=== PATIENT | female | born 1970 | race Caucasian/White ===

== ENCOUNTER → 2018-09-06 15:56 | Outpatient (CLI) | payer OTHER, SELFPAY ==
[2016-02-17 07:34] VITALS: BMI 33.3
[2018-09-11 19:54] LABS: HPV APTIMA, High Risk Negative (Negative)
== END ==
PROVIDERS: Visit Provider Obstetrics & Gynecology
DX: Z12.4 Encounter for screening for malignant neoplasm of cervix (principal)
CPT/HCPCS: 87624; 88175; G0145

== ENCOUNTER → 2020-10-25 12:42 | Outpatient (CLI) | payer SELFPAY, OTHER ==
--- NOTE | 2020-10-25 12:46 | CT_ITS ---
STUDY: CT SCAN LOWER EXTREMITY KNEE RIGHT REASON FOR EXAM: Female, [address] [facility] RIGHT KNEE RADIATION DOSAGE (If Supplied By Facility): CTDIvol = ( 19.23 ) mGy, DLP = ( 1073.76 ) mGycm. Individualized dose optimization techniques were used for this CT.? TECHNIQUE: Multiple axial tomographic images of the right hip joint, right knee joint and right ankle joint were obtained. Coronal and sagittal reconstruction was obtained as well. COMPARISON: None. FINDINGS: Imaging of the right hip joint was performed. No significant joint space narrowing is seen. Marked degree of joint space narrowing involving the medial compartment of the knee joint with degenerative spurring. Multiple subchondral cysts are seen. The largest cyst is seen in the subchondral region of the medial femoral condyle. This measures 3 cm x 2.8 cm. There is also evidence of a small joint effusion. Imaging of the ankle joint was obtained. There is evidence of a degenerative spur formation along the posterior aspect of the talus. CT/Extremity Lower without Contra IMPRESSION: Marked degree of joint space narrowing involving the medial compartment of the knee joint with multiple subchondral cysts more prominent in the medial femoral condyle. Small joint effusion. Electronically Signed: Raj Prince, at 15:29 EST , Service support ,
== END ==
PROVIDERS: Referring Provider Orthopaedic Surgery; Visit Provider Orthopaedic Surgery
DX: M21.061 Valgus deformity, not elsewhere classified, right knee (principal); M21.161 Varus deformity, not elsewhere classified, right knee
CPT/HCPCS: 73700

== ENCOUNTER 2020-11-19 17:03 | Observation (INO) | payer SELFPAY, OTHER ==
--- NOTE | 2020-11-10 08:49 | RAD_ITS ---
STUDY: X-RAY CHEST REASON FOR EXAM: Female, 50 years old. PRE-OP. PT ST NO CHEST COMPLAINTS TODAY TECHNIQUE: PA and lateral views of the chest. COMPARISON: None. FINDINGS: The lungs are clear and expanded. There is no demonstrated pleural abnormality. Normal size heart. Normal mediastinum and chuck. Normal visualized pulmonary arteries. Normal visualized aortic arch and descending thoracic aorta. Normal visualized thoracic spine. Normal visualized ribs, clavicles, and shoulders. There is no demonstrated abnormality of the visualized soft tissue structures of the upper abdomen. RAD/Chest PA and Lateral IMPRESSION: Normal x-ray examination of the chest. Electronically Signed: Raj Prince MD at 10:27 EST , Service support ,
[2020-11-10 09:29] LABS: Hematocrit 37.8 % (37-47); Hemoglobin 12.6 g/dL (12.0-15.0); Mean Corp Hgb Conc 33.3 g/dL (32-36); Mean Corpuscular Hgb 29.9 pg (27.0-32.0); Mean Corpuscular Volume 89.8 fL (81-99); Mean Platelet Vol. 9.6 fl (6.2-12.0); Platelet Count 310 K/mm3 (150-450); RBC Distribution Width CV 13.6 % (11.6-14.6); RBC Distribution Width SD 44.2 fl (35.1-43.9); Red Blood Count 4.21 M/mm3 (4.2-5.4)
[2020-11-10 09:53] LABS: Magnesium 1.8 mg/dL (1.6-2.6)
[2020-11-10 10:02] LABS: Anion Gap 5 (5-15); BUN 14 mg/dL (7-18); BUN/Creat Ratio 23.5 RATIO (10-20); Calcium,Total 8.8 mg/dL (8.5-10.1); Chloride 106 mmol/L (98-107); EST Glomerular Filtration Rate 114 mL/min (>60); Est Glom Filt Rate - Afr Amer 137 mL/min (>60); Glucose 88 mg/dL (74-106); Potassium 3.8 mmol/L (3.5-5.1); Sodium Level 138 mmol/L (136-145)
[2020-11-19] VITALS (16 sets, daily range): BP systolic 80–116; BP diastolic 41–75; PULSE 58–86; RESP 16–18; TEMP 36.2–36.9; O2SAT 92–100; BMI 36.6
--- NOTE | 2020-11-19 | KNEE_PTH ---
PATIENT: ROSEMARIE JI LOC: MS3 U#:[id number] AGE/SX: 50/F ROOM: [facility] [place] RE11/19/[address]: Dr. Jesús Sam MD : 1970 BED: 1 DIS: 11/20/2020 SPEC #: [id number] RECD: 11/19/20 14:48 STATUS: LARON REVlad #: [id number] JANES: 11/19/20 00:[address]: Jesús Sam DEPT: SURGICAL PATHOLOGY RECD BY: Cullen Nassar ENTERED: 11/22/20 10:50 SP TYPE: TOTAL KNEE OTHR DR: Merry Davila, RETIREMENT PLAN COUNSELOR-C NITA Chau Tissues: A - Knee, NOS B - Femoral region, NOS Procedures: Decalcification bone/plaque Surgery Specimen Level IV HEADER OPERATION: ERAS, total knee replacement robotic arm assist PRE-OP DIAGNOSIS: Right knee severe rheumatoid arthritis TISSUE SUBMITTED: A - Right knee bone and tissue, B - Right femoral medial condyle cyst MICROSCOPIC DIAGNOSIS A. Bone and soft tissue of right knee, total knee replacement: Severe degenerative joint disease. Synovial hyperplasia with associated chronic inflammation. Trilineage hematopoiesis. B. Right femoral medial condyle cyst, excision: Fibrous tissue with associated chronic inflammation with focal degenerative change. Minute fragments of bone with no pathologic change. See comment. AM:fabby 11/25/2020 COMMENT B. The lesion may represent a cyst. Clinical correlation is suggested. MICROSCOPIC DESCRIPTION Slides are reviewed. GROSS DESCRIPTION A - Received is one container designated right knee bone and tissue. The specimen consists of multiple fragments of arreguin-yellow bone measuring in aggregate 14 x 11 x 2 cm. Also in the specimen container are multiple fragments of yellow-white soft tissue measuring in aggregate 2 x 2 x 0.8 cm. A number of bony fragments contain articular surfaces consistent with tibial plateau and femoral condyle and displaying prominent osteophyte formation, eburnation, and bone erosion. Foot Setter sections are submitted in two cassettes as follows: 1 - soft tissue, 2 - bone after decalcification. B - Received in fixative is one container labeled with the patient's name and designated right femoral condyle cyst. The specimen consists of an irregular fragment of arreguin-white soft tissue measuring 3 x 2.2 x 1.5 cm. The specimen is sectioned and totally submitted in one cassette. / JUVE:fabby 11/22/20 TC:3 CPT: 65327 x2, [id number]
[2020-11-19 07:45] LABS: Internal QC Validated? YES +Cl - CLEAR BKGD
[2020-11-19 07:46] LABS: Pregnancy, Urine Negative Negative
[2020-11-19] MEDS: Lactated Ringers 1,000 ML 100 ML IV ×3 (08:08→17:01)
[2020-11-19] MEDS: Gabapentin 600 MG Tablet PO (08:09)
[2020-11-19] MEDS: Acetaminophen 500 MG Tablet 1000 MG PO ×2 (08:09→22:12)
[2020-11-19] MEDS: Scopolamine 1mg/72hr Patch 1 PATCH TD (08:09)
[2020-11-19] MEDS: Celecoxib 200 MG Capsule 400 MG PO (08:09)
[2020-11-19] MEDS: Cefazolin 2 GM in 0.9% Normal Saline 100 ML IV (10:04)
[2020-11-19 11:06] LABS: Bedside Glucose 82 mg/dL (70-110)
--- NOTE | 2020-11-19 13:47 | PCM.OP.PRO ---
Procedure Report Date of Procedure: 11/19/20 Preoperative diagnosis: Right knee severe rheumatoid arthritis large cysts of the femur and tibia Postoperative diagnosis: Same Title of procedure : Right total knee replacement, cemented Balaji triathlon YAKOV Surgeon: Jesús Sam MD Alteration Workroom Supervisor: Gertrudis Cook PA-C Anesthesia: spinal adductor canal nerve block Anesthesiologist:Dr. astudillo / CALVIN Special medications: Ancef, tranexamic acid EBL 600 Complications: None Indications for surgery: Patient is a [50-year-old [female] with a history of knee rheumatoid arthritis appropriately treated and failed conservative measures and wished to proceed with total knee replacement. Patient was cleared for surgery by the medical doctor and has been evaluated by the anesthesia staff Findings: Intraoperative findings showed severe rheumatoid arthritis of the knee. Patient underwent knee replacement using Balaji triathlon cemented stemmed total knee components Yakov robotic assisted. Size [3] femur 12 x 50 mm stem with a 10 mm posterior medial augment, size [3] tibia a 12 x 50 stem, [29 x 9] asymmetric X3 patella, size [3-9 PS] X3 tibial polyethylene insert, knee was nicely balanced. Patella tracked well. Patient underwent standard wound closure in layers. Vicryl and strata fix sutures utilized followed by skin isai. guest services assistant, physician pastry assistant, was utilized throughout the entire procedure. They were vital in helping with patient positioning, holding of retractors, exposing the tissues adequately for safe completion of the procedure including cutting of the bone, helping vegetable loader appropriate alignment and sizing of the components, implantation of the components, as well as wound closure, bandage application, and safe patient transfer. Without surgical technologist, physician pastry assistant, surgical time would have been significantly increased, and surgical outcome could have been less optimal. Description of procedure: The patient was taken to the OR, transferred to the OR table. They were given a spinal anesthetic. Ancef was given IV preoperatively. Well-padded tourniquet was applied to the upper thigh of the operative leg. Nonoperative leg had a MAG hose and SCD on throughout. Operative limb was prepped padded and draped in usual orthopedic sterile fashion for the procedure. We began by injecting the pain relieving solution in the anterior superior aspect of the knee region. The limb was exsanguinated, and the tourniquet was applied to 300 mmHg. Made a midline incision through skin, subcutaneous tissue, bringing down us on the extensor mechanism. Medial parapatellar arthrotomy was carried out. Straw-colored joint fluid was evacuated. We raised a sleeve of tissue off the upper medial tibia. Resected some of the infrapatellar fat pad. We remove degenerative medial and lateral meniscus. Removed bone spurs from about the patella. We removed tissue off the anterior aspect of the distal femur. Patella was translated laterally and/or everted as needed throughout the procedure. ACL and PCL was removed. Collateral ligaments were preserved. Physician placed the retractors and pastry assistant held retractors protecting above ligaments throughout the procedure. Patella was everted. Measured. Appropriate resection was carried out leaving us between a 13 and 15 mm thick patella. Metal plate was applied. Pins were placed in the femur and tibia at appropriate locations being bicortical. Check pin was placed in the distal femur and upper tibia at appropriate location. [employer] robot was appropriately prepared femur then tibia. Knee was appropriately stressed in 90 degrees of flexion as well as in extension. Robot was appropriately manipulated to allow for approximately 19 to 21 mm of flexion and extension gap. Good sizing and alignment of components was noted on computer. Robotic cuts were carried out cutting the upper tibia first, followed by femoral cuts. Alteration Workroom Supervisor help with retraction and protecting soft tissues throughout. Bone fragments were removed. we then sized off the upper tibia with the help of the pastry assistant. We then checked flexion extension gaps finding them to be adequate and equal. Large cyst in the upper tibia, distal femur medially, posterior femur medially noted as per preoperative CT. The cysts were curetted. Consistent with rheumatoid arthritis. Box cut for the PS, then TS knee performed. Drill was done for the femoral stem. Femoral trial was placed and seated down nicely. We decided on a 10 mm posterior augment for the femur which was ultimately cut with the robot as well. For the tibial trial with plastic insert was inserted. Next the distal femoral trial was applied. Tibial tray was allowed to freefloat with a 9 mm insert. Knee was flexed and extended an external alignment guide is utilized. Tibial trial was pinned in place. . Punch and drill was used on the upper tibial component and that was removed. Bone spurs had been removed from the posterior medial and posterior lateral aspect of the femur while the pastry assistant lifted up on the distal femur and exposed each compartment. Patella was everted and measured. Patella was sized. Clamp was utilized. 3 drill holes were placed through the clamp held by the pastry assistant. Trial patella was placed and removed. Bleeding was controlled at the back of the knee with the bovey and aqua Mantis. Posterior knee soft tissues were carefully injected with pain relieving solution. Components were checked and open. . The bony surfaces cleaned and dried. Full batches of bone cement mixed. Tibia was cemented after we placed a cement restrictor down the canal. Cysts were cemented. Stemmed component was hammered in position. Knee was held still with pressure on the tibia while the cement hardened., Another 2 batches of bone cement mixed. Femur demented with cement filling the cyst in the distal posterior femur. Patella cemented into position and held with a clamp. Tibial trial was placed. When the cement was fully hardened tourniquet was let down. Tourniquet time was 2 hours and 30 minutes. Tourniquet was let down for 20 minutes after the 2-hour yen.. Checkpoints and femoral and tibial pins removed. we thoroughly irrigated and debrided the knee. Bleeding controlled with the Bovie and aqua Fracisco. Knee was again thoroughly irrigated. Irresept solution utilized. Patella noted to track nicely. We repaired the arthrotomy with a combination of #1 Vicryl and #2 strata fix. We did a mid layer of 1 Vicryl and #0 strata fix running. Andrew were utilized on the incision as well as pin sites. Mepilex dressing applied. MAG hose and SCDs applied. Patient was awoken from their anesthetic, transferred back to their own bed and recovery room in satisfactory condition. Second dose of IV Tranexamic acid was given while closing wound. Patient was planning to be outpatient, appropriate IV antibiotic to be utilized as well as medication for DVT prevention. Hopeful discharge today.Physical therapy will be consulted. Ancef was used 2 g IV preoperatively. Xarelto will be used for DVT prevention 10 mg daily This note was generated with [employer] dictation software. It may contain incorrect words, spelling, and punctuation that were not noted in checking the note before signing.
--- NOTE | 2020-11-19 14:15 | RAD_ITS ---
STUDY: X-RAY - RIGHT KNEE REASON FOR EXAM: Postop right total knee arthroplasty. TECHNIQUE: 2 view(s) of the knee. COMPARISON: CT images 11/11. FINDINGS: There is a right total knee arthroplasty without evidence of complication. There is postoperative gas in the soft tissues and overlying skin isai. RAD/Knee 1 or 2 Views IMPRESSION: Uncomplicated right total knee arthroplasty. Electronically Signed: Valentín Kerr MD at 15:15 EST Tel , Service support ,
[2020-11-19 14:39] LABS: Hemoglobin 10.7 g/dL (12.0-15.0)
[2020-11-19] MEDS: Cefazolin 1 GM/50 ML BAG IV ×2 (15:27→22:10)
--- NOTE | 2020-11-19 17:53 | PCM.PROGNOTE ---
<Giovanni[employer]erry [employer]ER - Last Filed: 11/19/20 18:00> Subjective: Patient seen and examined. Hospitalist consult requested for medical management. Patient states pain is currently well controlled. She denies any medical history and is not on any daily medications. - Physical Exam Vitals/I&O's: Vital Signs Temp Pulse Resp BP Pulse Ox 97.4 F L 86 16 115/71 99 11/19/20 17:50 11/19/20 17:50 11/19/20 17:50 11/19/20 17:50 11/19/20 17:50 Oxygen Flow Rate (L/min) 6 Oxygen Delivery Method Room Air Weight: 200 lb 9.93 oz Body Mass Index (BMI) 36.6 Intake and Output for Last 24 Hours 11/17/20 11/18/20 11/19/20 23:59 23:59 23:59 Intake Total 2375.5 / 2375.5 Balance 2375.5 / 2375.5 General: Alert, Oriented x3, Cooperative HEENT: Atraumatic, PERRLA, EOMI, Normocephalic Neck: Supple, No JVD, Negative Carotid Bruits Lungs: Clear to auscultation, Normal air movement Cardiovascular: Regular rate, No murmurs Abdomen: Bowel Sounds Present, Soft, Non Tender Extremities: No clubbing, No cyanosis, No edema, Capillary Refill Less than 3 Seconds Skin: No rashes, No breakdown Musculoskeletal: No Tenderness to Palpation of Joints or Extremities Neurological: Cranial nerves II-XII grossly intact, Neuro grossly intact Psych/Mental Status: Normal Affect, Appropriate Microbiology Past 72 Hours 11/18/20 11:18 Interface Orders SARS-CoV-2 Antigen (Rapid) - Final Laboratory Results 11/19/20 07:35: Urine Test Negative 11/19/20 07:49: POC Glucose 82 11/19/20 14:33: Hgb 10.7 L, Hct 34.0 L Current Medications Lactated Ringer's () 1,000 mls @ 100 mls/hr IV .Q10H VIDYA Last Admin: 11/19/20 17:01 Dose: 100 mls/hr Documented by: Cefazolin Sodium () 1 gm in 50 mls @ 150 mls/hr IV Q8 VIDYA Stop: 11/19/20 22:19 Last Infusion: 11/19/20 16:59 Dose: Infused Documented by: Insulin Human Lispro (Insulin Lispro 100 Unit/Ml Insuln.Pen) 1 - 6 unit SC Q4H PRN PRN; Protocol PRN Reason: BG>/= 180, SEE PROTOCOL Oxycodone HCl (Oxycodone 5 Mg Tablet) 5 mg PO Q4H PRN PRN PRN Reason: Pain Score 6-10 Medical Necessity - Tobacco Use Smoking Status: Never smoker Tobacco Use: Non-smoker Assessment/Plan 1. Right knee severe rheumatoid arthritis status post right total knee replacement by Dr. Sam 11/19/20-management per Ortho. 2. Obesity-diet and lifestyle modifications encouraged. 3. Rheumatoid arthritis-not on regimen. DVT prophylaxis-Per surgery recommendations This patient was seen by MARYANN Menard under the supervision of Dr. Walker. <William Walker F - Last Filed: 11/19/20 20:18> - Physical Exam Vitals/I&O's: Vital Signs Temp Pulse Resp BP Pulse Ox 97.4 F L 86 16 115/71 99 11/19/20 17:50 11/19/20 17:50 11/19/20 17:50 11/19/20 17:50 11/19/20 17:50 Oxygen Flow Rate (L/min) 6 Oxygen Delivery Method Room Air Weight: 200 lb 9.93 oz Body Mass Index (BMI) 36.6 Intake and Output for Last 24 Hours 11/17/20 11/18/20 11/19/20 23:59 23:59 23:59 Intake Total 2375.5 / 2375.5 Balance 2375.5 / 2375.5 Microbiology Past 72 Hours 11/18/20 11:18 Interface Orders SARS-CoV-2 Antigen (Rapid) - Final Laboratory Results 11/19/20 07:35: Urine Test Negative 11/19/20 07:49: POC Glucose 82 11/19/20 14:33: Hgb 10.7 L, Hct 34.0 L Current Medications Lactated Ringer's () 1,000 mls @ 100 mls/hr IV .Q10H VIDYA Last Admin: 11/19/20 17:01 Dose: 100 mls/hr Documented by: Cefazolin Sodium () 1 gm in 50 mls @ 150 mls/hr IV Q8 VIDYA Stop: 11/19/20 22:19 Last Infusion: 11/19/20 16:59 Dose: Infused Documented by: Sodium Chloride () 250 mls @ 15 mls/hr IV .[id number] PRN PRN Reason: Additional IVPB Infusion Oxycodone HCl (Oxycodone 5 Mg Tablet) 5 mg PO Q4H PRN PRN PRN Reason: Pain Score 6-10 Last Admin: 11/19/20 19:49 Dose: 5 mg Documented by: Sodium Chloride (0.9% Saline Lock 10 Ml Syringe) 10 - 40 ml IV UD PRN PRN Reason: SALINE FLUSH Addendum: Dr. Walker I personally examined the patient and reviewed the chart. I agree with the above. 50-year-old female presented to the hospital for elective right total knee replacement secondary to severe rheumatoid arthritis. She is not on any medications for rheumatoid arthritis, and would hold off starting any at this moment as to not wanting to impede healing of her operative site. She states that she does not take any other medications and is currently feeling well and pain is well controlled. Pain management per primary, PT/OT per primary. Thank you for the consult at this time will sign off. OBSV E&M: 33141 Subsequent observation care L3
[2020-11-19] MEDS: oxyCODONE 5 MG Tablet PO (19:49)
[2020-11-20] MEDS: 0.9% Normal Saline 1,000 ML 999 ML IV ×2 (00:20→06:57)
[2020-11-20] MEDS: oxyCODONE 5 MG Tablet PO ×2 (02:49→10:57)
[2020-11-20] MEDS: Rivaroxaban 10 MG Tablet PO (06:00)
[2020-11-20] MEDS: Acetaminophen 500 MG Tablet 1000 MG PO ×2 (06:00→13:53)
[2020-11-20 06:32] VITALS: BP 86/47; PULSE 75; RESP 16; TEMP 36.9; O2SAT 94
[2020-11-20] MEDS: 0.9% Normal Saline 1,000 ML 150 ML IV (06:57)
--- NOTE | 2020-11-20 07:52 | PCM.PN.ORT ---
Subjective: Patient is postoperative day #1 from right total knee replacement for rheumatoid arthritis. Her pain is well controlled. Pain currently 2 out of 10. She denies chest pain or shortness of breath. Denies productive cough. She was somewhat dizzy after being up and around in her room. Her scopolamine patches hence been removed. She is still having some mild paresthesias in the right leg. This likely from her nerve block and/or tourniquet use. She is hoping to go home later today. Objective: Patient is laying in bed comfortably. She is wide-awake. She is speaking in normal sentences without shortness of breath or other difficulties. Patient's right lower extremity bandages on clean and dry. There is no blood on her knee incision bandage. There is very faint blood over the tibial pin site bandage. No blood over the femoral pin site bandage her knee motion is 5-70 degrees. She is able to actively lift her right leg off the bed. She has normal active plantar flexion dorsiflexion of the toes and ankles bilaterally. He is able to do a straight leg raise on the left as well. Capillary refill is equal bilaterally. Warmth and color equal bilaterally. Dorsalis pedis and posterior tibial pulses equal bilaterally. Negative calf pain bilaterally. Negative Homans' sign bilaterally. MAG fontenot and SCDs on. X-rays reviewed AP and lateral of right knee from recovery room shows a cemented stemmed total knee replacement in good position without obvious loosening failure or fracture. Note from hospitalist reviewed - Physical Exam Vitals/I&O's: Vital Signs Temp Pulse Resp BP Pulse Ox 98.4 F 75 16 86/47 L 94 11/20/20 06:32 11/20/20 06:32 11/20/20 06:32 11/20/20 06:32 11/20/20 06:32 Oxygen Flow Rate (L/min) 6 Oxygen Delivery Method Room Air Weight: 91 kg Body Mass Index (BMI) 36.6 Intake and Output for Last 24 Hours 11/18/20 11/19/20 11/20/20 23:59 23:59 23:59 Intake Total 2942.17 / 2942.17 1678.33 / 1678.33 Balance 2942.17 / 2942.17 1678.33 / 1678.33 Microbiology Past 72 Hours 11/18/20 11:18 Interface Orders SARS-CoV-2 Antigen (Rapid) - Final Laboratory Results 11/19/20 07:49: POC Glucose 82 11/19/20 14:33: Hgb 10.7 L, Hct 34.0 L Current Medications Acetaminophen (Acetaminophen 500 Mg Tablet) 1,000 mg PO Q8 VIDAY Last Admin: 11/20/20 06:00 Dose: 1,000 mg Documented by: Sodium Chloride () 250 mls @ 15 mls/hr IV .[id number] PRN PRN Reason: Additional IVPB Infusion Sodium Chloride () 1,000 mls @ 150 mls/hr IV .Q6H40M VIDYA Last Infusion: 11/20/20 06:57 Dose: 0 mls/hr Documented by: Ondansetron HCl (Ondansetron 4 Mg/2 Ml Vial) 4 mg IV Q8H PRN PRN PRN Reason: NAUSEA/VOMITING Oxycodone HCl (Oxycodone 5 Mg Tablet) 5 mg PO Q4H PRN PRN PRN Reason: Pain Score 6-10 Last Admin: 11/20/20 02:49 Dose: 5 mg Documented by: Rivaroxaban (Rivaroxaban 10 Mg Tablet) 10 mg PO 0600 VIDYA Last Admin: 11/20/20 06:00 Dose: 10 mg Documented by: Sodium Chloride (0.9% Saline Lock 10 Ml Syringe) 10 - 40 ml IV UD PRN PRN Reason: SALINE FLUSH Medical Necessity - Tobacco Use Smoking Status: Never smoker Tobacco Use: Non-smoker Assessment/Plan Right total knee replacement for rheumatoid arthritis. Continue Xarelto MAG hose SCDs for DVT prevention. Continue upright position and incentive spirometer use. Tylenol, oxycodone for pain. CBC and basic metabolic panel pending. If patient continues to have low blood pressures and/or near syncope, will further request input from hospitalist service. If patient is doing fine and passes physical therapy, hopefully she will be discharged home later today. Patient was planned outpatient, so she has her prescriptions at home and appropriate discharge instructions on chart
--- NOTE | 2020-11-20 08:05 | DCINST_ITS ---
Discharge Diet: No Restrictions Discharge Activity: May Not Drive May shower in (days): 2 Ice area for (Minutes): 20 - every hour while awake. Weight Bearing Status: Weight bearing as tolerated Elevate: Operative Extremity Additional Activity Instructions:: Wear elastic stockings for 2 weeks after your surgery. Call your doctor if your incision/area has: Continuous Slow Oozing, Sudden Increased Bleeding, Increased Pain/ Swelling, Increased Redness, Foul Smelling Discharge Call your doctor if you observe: Fever of 101 or Higher, Coldness, Increased Pain, Numbness or Tingling, Change in Color, Calf discomfort, Uncontrolled pain Change Dressing in (Days):: 5 - and daily as needed. Allergies/Adverse Reactions: Allergies No Known Allergies Allergy (Verified 11/19/20 07:21) Medications to take at Discharge Acetaminophen [Tylenol Extra Strength] 500 mg PO PRN PRN 11/05/20 Primary Care Physician: Alma Ortiz PA [Primary Care Provider] - Test Results: Test results from this visit will be discussed in further detail at your follow- up appointment, if applicable.
[2020-11-20 08:19] LABS: Absolute Lymphocyte Count 1.15 X10^3/uL (0.83-4.51); Absolute Neutrophil Count 8.2 X10^3/uL (2.0-7.7); Basophil# 0.03 X10^3/uL; Basophil% 0.3 % (0-1); Eosinophil# 0.01 X10^3/uL; Eosinophils% 0.1 % (0-5); Hemoglobin 9.2 g/dL (12.0-15.0); Lymphocyte # 1.15 X10^3/ul (4.0); Lymphocyte % 10.6 % (19-41); Mean Corp Hgb Conc 32.9 g/dL (32-36); Mean Corpuscular Hgb 30.7 pg (27.0-32.0); Mean Corpuscular Volume 93.3 fL (81-99); Mean Platelet Vol. 9.6 fl (6.2-12.0); Monocyte# 1.34 X10^3/uL; Monocyte% 12.4 % (0-10); NRBC Flagged by Analyzer 0 % (0-5); Neutrophil # 8.23 X10^3/uL (2.7-7.7); Platelet Count 219 K/mm3 (150-450); RBC Distribution Width CV 13.7 % (11.6-14.6); RBC Distribution Width SD 46.6 fl (35.1-43.9); White Blood Count 10.8 K/mm3 (4.4-11.0)
[2020-11-20 08:32] LABS: ALB/GLOB Ratio 0.9 RATIO (0.9-2.4); AST(SGOT) 20 U/L (15-37); Alanine Aminotransfer ALT/SGPT 35 U/L (13-56); Albumin, Serum 2.4 g/dL (3.2-5.0); Alkaline Phosphatase 50 U/L (45-117); Anion Gap 6 (5-15); BUN 11 mg/dL (7-18); BUN/Creat Ratio 28.1 RATIO (10-20); Calcium,Total 7.2 mg/dL (8.5-10.1); Chloride 107 mmol/L (98-107); Creatinine, Serum 0.39 mg/dL (0.55-1.02); EST Glomerular Filtration Rate 184 mL/min (>60); Est Glom Filt Rate - Afr Amer 223 mL/min (>60); Estimated Creatinine Clearance 136.49 ml/min; Globulin 2.8 g/dL (2.2-4.2); Glucose 108 mg/dL (74-106); Potassium 3.8 mmol/L (3.5-5.1); Protein, Total 5.2 g/dL (6.4-8.2); Sodium Level 137 mmol/L (136-145)
[2020-11-20 09:07] VITALS: BP 115/57; PULSE 92; RESP 16; TEMP 36.9; O2SAT 98
--- NOTE | 2020-11-20 09:31 | PCM.PROGNOTE ---
<Merry Davila EVIDENCE CUSTODIAN - Last Filed: 11/20/20 09:43> Subjective: Patient seen and examined. Reports mild lightheadedness with ambulation to the bathroom this morning. Blood pressure noted to be low at that time. Improved with IV fluids. - Physical Exam Vitals/I&O's: Vital Signs Temp Pulse Resp BP Pulse Ox 98.5 F 92 16 115/57 L 98 11/20/20 09:07 11/20/20 09:07 11/20/20 09:07 11/20/20 09:07 11/20/20 09:07 Oxygen Flow Rate (L/min) 6 Oxygen Delivery Method Room Air Weight: 200 lb 9.93 oz Body Mass Index (BMI) 36.6 Intake and Output for Last 24 Hours 11/18/20 11/19/20 11/20/20 23:59 23:59 23:59 Intake Total 2942.17 / 2942.17 1678.33 / 1678.33 Balance 2942.17 / 2942.17 1678.33 / 1678.33 General: Alert, Oriented x3, Cooperative HEENT: Atraumatic, PERRLA, EOMI, Normocephalic Neck: Supple, No JVD, Negative Carotid Bruits Lungs: Clear to auscultation, Normal air movement Cardiovascular: Regular rate, No murmurs Abdomen: Bowel Sounds Present, Soft, Non Tender Extremities: No edema, Capillary Refill Less than 3 Seconds Skin: No rashes, No breakdown, - - Postop check intact Musculoskeletal: No Tenderness to Palpation of Joints or Extremities Neurological: Cranial nerves II-XII grossly intact, Neuro grossly intact Psych/Mental Status: Normal Affect, Appropriate Microbiology Past 72 Hours 11/18/20 11:18 Interface Orders SARS-CoV-2 Antigen (Rapid) - Final Laboratory Results 11/19/20 07:49: POC Glucose 82 11/19/20 14:33: Hgb 10.7 L, Hct 34.0 L 11/20/20 08:06: Sodium 137, Potassium 3.8, Chloride 107, Carbon Dioxide 24.0, Anion Gap 6, BUN 11, Creatinine 0.39 L, Estim Creat Clear Calc 136.49, Est GFR (MDRD) Af Amer 223, Est GFR (MDRD) Non-Af 184, BUN/Creatinine Ratio 28.1 H, Glucose 108 H, Calcium 7.2 L, Total Bilirubin 1.70 H, AST 20, ALT 35, Alkaline Phosphatase 50, Total Protein 5.2 L, Albumin 2.4 L, Globulin 2.8, Albumin/Globulin Ratio 0.9 11/20/20 08:06: WBC 10.8, RBC 3.00 L, Hgb 9.2 L, Hct 28.0 L, MCV 93.3, MCH 30.7, MCHC 32.9, RDW Std Deviation 46.6 H, RDW Coeff of Garrett 13.7, Plt Count 219, MPV 9.6, Immature Gran % (Auto) 0.600, Neut % (Auto) 76.0 H, Lymph % (Auto) 10.6 L, [place] % (Auto) 12.4 H, Eos % (Auto) 0.1, Baso % (Auto) 0.3, Absolute Neuts (auto) 8.2 H, Absolute Lymphs (auto) 1.15, Nucleated RBC % 0 Current Medications Acetaminophen (Acetaminophen 500 Mg Tablet) 1,000 mg PO Q8 [facility] Last Admin: 11/20/20 06:00 Dose: 1,000 mg Documented by: Sodium Chloride () 250 mls @ 15 mls/hr IV .[id number] PRN PRN Reason: Additional IVPB Infusion Sodium Chloride () 1,000 mls @ 150 mls/hr IV .Q6H40M [facility] Last Infusion: 11/20/20 06:57 Dose: 0 mls/hr Documented by: Ondansetron HCl (Ondansetron 4 Mg/2 Ml Vial) 4 mg IV Q8H PRN PRN PRN Reason: NAUSEA/VOMITING Oxycodone HCl (Oxycodone 5 Mg Tablet) 5 mg PO Q4H PRN PRN PRN Reason: Pain Score 6-10 Last Admin: 11/20/20 02:49 Dose: 5 mg Documented by: Rivaroxaban (Rivaroxaban 10 Mg Tablet) 10 mg PO 0600 [facility] Last Admin: 11/20/20 06:00 Dose: 10 mg Documented by: Sodium Chloride (0.9% Saline Lock 10 Ml Syringe) 10 - 40 ml IV UD PRN PRN Reason: SALINE FLUSH Medical Necessity - Tobacco Use Smoking Status: Never smoker Tobacco Use: Non-smoker Assessment/Plan 1. Postoperative hypotension-patient received IV fluids, blood pressure improved. Sandro for discharge home from a medical standpoint. 2. Right knee severe rheumatoid arthritis status post right total knee replacement by Dr. Sam 11/19/20-management per Ortho. 3. Obesity-diet and lifestyle modifications encouraged. 3. Rheumatoid arthritis-not on regimen. DVT prophylaxis-Per surgery recommendations This patient was seen by MARYANN Menard under the supervision of Dr. Hemphill. <Ran Hemphill - Last Filed: 11/20/20 14:04> Subjective: Seen and examined. Patient had low blood pressure early in the morning and started on normal saline at 50 mill per hour by nighttime hospitalist. Currently patient is feeling good and dizziness lightheadedness has resolved. Patient is being evaluated by PT Physical exam General: Alert, Oriented x3, Cooperative HEENT: Atraumatic, PERRLA, EOMI, Normocephalic Oral: No Gingival or Mucosal Lesions/ Ulcerations Neck: Supple, No JVD, Negative Carotid Bruits Lungs: Air entry diminished in bilateral lung bases. No crepitation/rhonchi Cardiovascular: Regular rate, Regular Rhythm, Normal S1, Normal S2, No murmurs Abdomen: Bowel Sounds Present, Soft, Non Tender, Non-Distended : No renal angle tenderness. No suprapubic tenderness. Extremities: Right TKR. Mild edema around the operative knee. Capillary Refill Less than 3 Seconds Skin: Surgical dressing is dry. No hematoma or active bleeding. Musculoskeletal: No Tenderness to Palpation of Joints or Extremities Neurological: Cranial nerves II-XII grossly intact, Deep Tendon Reflexes 2+/4 and Symmetrical, Neuro grossly intact Psych/Mental Status: Normal Affect, Appropriate. - Physical Exam Vitals/I&O's: Vital Signs Temp Pulse Resp BP Pulse Ox 98.4 F 99 16 109/51 L 99 11/20/20 13:21 11/20/20 13:21 11/20/20 13:21 11/20/20 13:11/20/20 13: Oxygen Flow Rate (L/min) 6 Oxygen Delivery Method Room Air Weight: 200 lb 9.93 oz Body Mass Index (BMI) 36.6 Intake and Output for Last 24 Hours 11/18/20 11/19/20 11/20/20 23:59 23:59 23:59 Intake Total 2942.17 / 2942.17 2678.33 / 2678.33 Balance 2942.17 / 2942.17 2678.33 / 2678.33 Microbiology Past 72 Hours 11/18/20 11:18 Interface Orders SARS-CoV-2 Antigen (Rapid) - Final Laboratory Results 11/19/20 14:33: Hgb 10.7 L, Hct 34.0 L 11/20/20 08:06: Sodium 137, Potassium 3.8, Chloride 107, Carbon Dioxide 24.0, Anion Gap 6, BUN 11, Creatinine 0.39 L, Estim Creat Clear Calc 136.49, Est GFR (MDRD) Af Amer 223, Est GFR (MDRD) Non-Af 184, BUN/Creatinine Ratio 28.1 H, Glucose 108 H, Calcium 7.2 L, Total Bilirubin 1.70 H, AST 20, ALT 35, Alkaline Phosphatase 50, Total Protein 5.2 L, Albumin 2.4 L, Globulin 2.8, Albumin/Globulin Ratio 0.9 11/20/20 08:06: WBC 10.8, RBC 3.00 L, Hgb 9.2 L, Hct 28.0 L, MCV 93.3, MCH 30.7, MCHC 32.9, RDW Std Deviation 46.6 H, RDW Coeff of Garrett 13.7, Plt Count 219, MPV 9.6, Immature Gran % (Auto) 0.600, Neut % (Auto) 76.0 H, Lymph % (Auto) 10.6 L, [place] % (Auto) 12.4 H, Eos % (Auto) 0.1, Baso % (Auto) 0.3, Absolute Neuts (auto) 8.2 H, Absolute Lymphs (auto) 1.15, Nucleated RBC % 0 Current Medications Acetaminophen (Acetaminophen 500 Mg Tablet) 1,000 mg PO Q8 [facility] Last Admin: 11/20/20 13:53 Dose: 1,000 mg Documented by: Sodium Chloride () 250 mls @ 15 mls/hr IV .[id number] PRN PRN Reason: Additional IVPB Infusion Sodium Chloride () 1,000 mls @ 150 mls/hr IV .Q6H40M [facility] Last Admin: 11/20/20 13:54 Dose: Not Given Documented by: Ondansetron HCl (Ondansetron 4 Mg/2 Ml Vial) 4 mg IV Q8H PRN PRN PRN Reason: NAUSEA/VOMITING Oxycodone HCl (Oxycodone 5 Mg Tablet) 5 mg PO Q4H PRN PRN PRN Reason: Pain Score 6-10 Last Admin: 11/20/20 10:57 Dose: 5 mg Documented by: Rivaroxaban (Rivaroxaban 10 Mg Tablet) 10 mg PO 0600 [facility] Last Admin: 11/20/20 06:00 Dose: 10 mg Documented by: Sodium Chloride (0.9% Saline Lock 10 Ml Syringe) 10 - 40 ml IV UD PRN PRN Reason: SALINE FLUSH Assessment/Plan This patient was seen in conjunction with Merry GOMEZ. I have independently interviewed and examined the patient and reviewed pertinent history, examination findings, laboratory and plan of management. I have reviewed the note and agree with the documented findings with the few additional points. In brief, patient is a 50-year-old female admitted after elective right TKR for right severe knee rheumatoid arthritis. Patient had postoperative hypotension which resolved after adequate fluid resuscitation, Ringer lactate and normal saline. Patient had mild drop in hemoglobin from 12.6-9.2 but no active bleeding. Mild postoperative acute blood loss anemia. Other comorbidities as mentioned above including RA and moderate grade obesity Follow with PCP. Follow-up orthopedic surgeon as mentioned in discharge instruction. Patient is medically stable for discharge. I have discussed my assessment with Merry GOMEZ and orders have been reviewed. Inpatient E&M: 43852 Subs Hosp L2
[2020-11-20 13:21] VITALS: BP 109/51; PULSE 99; RESP 16; TEMP 36.9; O2SAT 99
== END 2020-11-20 14:30 | disposition home or self-care (01) ==
LOC: SDC 11-20 07:58 → MS3 11-20 07:58
PROVIDERS: Anesthesiology; Admitting Provider Orthopaedic Surgery; Referring Provider Orthopaedic Surgery; Visit Provider Orthopaedic Surgery
PROC: 0SRC0JZ Replacement of Right Knee Joint with Synthetic Substitute, Open Approach (ICD-10-PCS; CPT 27447; principal; 2020-11-19 09:00)
DX: M06.861 Other specified rheumatoid arthritis, right knee (principal); Z20.828 Contact with and (suspected) exposure to other viral communicable diseases; M85.69 Other cyst of bone, multiple sites; E66.9 Obesity, unspecified; Z68.36 Body mass index [BMI] 36.0-36.9, adult; I95.81 Postprocedural hypotension
CPT/HCPCS: 01400; 27447; 64447; S2900; 36415; 71046; 73560; 80048; 80053; 81025; 82962; 83735; 85014; 85018; 85025; 85027; 87077; 87081; 87426; 88305; 88311; 96361; 96365; 97162; 99218; C1776; C9803; J7030; J7120; G0378; G0379

== ENCOUNTER → 2021-03-16 | Outpatient (CLI) | payer OTHER, SELFPAY ==
[2020-11-19 17:59] VITALS: BMI 36.6
[2021-03-22 11:17] LABS: HPV APTIMA, High Risk Negative (Negative)
== END | disposition home or self-care (01) ==
LOC: LABSPEC 13:57
PROVIDERS: Visit Provider Obstetrics & Gynecology
DX: Z12.4 Encounter for screening for malignant neoplasm of cervix (principal)
CPT/HCPCS: 87624; 88175; G0145

== ENCOUNTER → 2022-03-17 | Outpatient (CLI) | payer OTHER, SELFPAY ==
--- NOTE | 2022-03-17 | IMM_PTH ---
PATIENT: ROSEMARIE JI LOC: [facility] U#:[id number] AGE/SX: 51/F ROOM: RE03/17/[address]: Dr. Felicitas Thomas MD : 1970 BED: DIS: 03/17/2022 SPEC #: [id number] RECD: 03/22/22 14:08 STATUS: LARON REQ #: [id number] JANES: 03/17/22 00:[address]: Felicitas Colon DEPT: IMMUNOHISTOCHEMISTRY RECD BY: Roselyn Mendez ENTERED: 03/22/22 14:09 SP TYPE: IMMUNO OTHR DR: NITA Chau Tissues: Uterine cervix, NOS Procedures: p16 (initial) KI-67 (add) PHYSICIAN & INSTITUTION [place] [id number] SPECIMEN INFORMATION: Tissue Source: Cervix at 12 o?clock, biopsy Clinical Info: Cervical inflammation Specimen Number: [id number] CPT code: 34552, 66143 METHODOLOGY: Deparaffinized sections of prefer/formalin-fixed tissue or PAP/DQ stained slides are incubated with monoclonal/polyclonal antibodies/oligonucleotide probes. Localization is made via biotin free immunoperoxidase method. Appropriate controls are performed and reacted as expected. Results on target cell population are indicated in the following table: RESULTS: ANTIBODY / CLONE RESULT P16 (E6H4) positive, focal, patchy Ki-67 (30-9) positive, low These tests were developed and their performance characteristics determined by [facility]. They may not have been cleared or approved by the U.[place]. Food and Drug Administration. The FDA has determined that such clearance or approval is not necessary. The above immunohistochemical/dualISH markers are ordered and reviewed by the Pathologist. INTERPRETATION: Cervix at 12 o?clock, biopsy: Focal HPV change present. AM:fabby 03/23/2022
--- NOTE | 2022-03-17 10:00 | CER_PTH ---
PATIENT: ROSEMARIE JI LOC: [facility] U#:[id number] AGE/SX: 51/F ROOM: RE03/17/[address]: Dr. Felicitas Thomas MD : 1970 BED: DIS: 03/17/2022 SPEC #: [id number] RECD: 03/17/22 11:13 STATUS: LARON SHERMANVlad #: [id number] JANES: 03/17/22 10:[address]: Felicitas Colon DEPT: SURGICAL PATHOLOGY RECD BY: Delaney Mariscal ENTERED: 03/21/22 06:32 SP TYPE: CERV OTHR DR: NITA Chau Tissues: Uterine cervix, NOS Procedures: Surgery Specimen Level IV HEADER OPERATION: Cervical biopsy PRE-OP DIAGNOSIS: Cervical inflammation TISSUE SUBMITTED: Cervical biopsy 12 o?clock MICROSCOPIC DIAGNOSIS Cervix at 12 o?clock, biopsy: Scant strips of benign superficial glandular and squamous mucosa with chronic inflammation and focal HPV change See comment. AM:fabby 03/22/2022 COMMENT Results from immunohistochemistry ([id number]) for surrogate HPV marker (p16) will be reported separately. MICROSCOPIC DESCRIPTION Slides are reviewed. GROSS DESCRIPTION Received in fixative is one container labeled with the patient's name and designated cervix at 12 o'clock. The specimen consists of multiple irregular fragments of light arreguin soft tissue that in aggregate measure 1 x 1 x <0.1 cm. The specimen is totally submitted in one cassette. / AM:fabby 03/21/2022 TC:3 CPT: 10115
== END | disposition home or self-care (01) ==
PROVIDERS: Visit Provider Obstetrics & Gynecology
DX: N72 Inflammatory disease of cervix uteri (principal); Z12.4 Encounter for screening for malignant neoplasm of cervix
CPT/HCPCS: 88175; 88305; 88341; 88342; G0145

== ENCOUNTER → 2023-05-24 | Outpatient (CLI) | payer OTHER, SELFPAY ==
[2023-05-24 12:19] LABS: Estradiol 64.5 pg/mL; Follicle Stimulating Hormone 18.2 mIU/mL; Luteinizing Hormone 14.3 mIU/mL
== END | disposition home or self-care (01) ==
LOC: WOBLAB 09:55
PROVIDERS: Visit Provider Nurse Practitioner Women's Health
DX: Z01.419 Encounter for gynecological examination (general) (routine) without abnormal findings (principal)
CPT/HCPCS: 36415; 82670; 83001; 83002

== ENCOUNTER → 2024-09-02 | Outpatient (CLI) | payer SELFPAY, OTHER | END | disposition home or self-care (01) | LOC: OPBI 09:47 | PROVIDERS: Referring Provider Nurse Practitioner Women's Health; Visit Provider Nurse Practitioner Women's Health | DX: Z12.31 Encounter for screening mammogram for malignant neoplasm of breast (principal); Z80.3 Family history of malignant neoplasm of breast | CPT/HCPCS: 77063; 77067 ==

== ENCOUNTER → 2024-09-22 | Outpatient (CLI) | payer SELFPAY, OTHER ==
--- NOTE | 2024-09-22 14:19 | BI_ITS ---
MAMMOGRAPHY - UNILATERAL DIAGNOSTIC: RIGHT BREAST REASON FOR EXAM: Female, 53 years old. Abnormal screening mammogram. PERTINENT HISTORY: TECHNIQUE: 90 degree lateral and Compression spot views of the right breast were obtained. CAD: Full Field Digital Mammography with Computer Added Detection was performed. COMPARISON: Comparison is made with prior study dated September 02, 2024. FINDINGS: Breast Composition: The breasts are heterogeneously dense, which may obscure small masses. Residual faint nodular density seen in the upper central aspect of the right breast. Correlation with ultrasound recommended. No other significant abnormalities are identified. BI/DIAG MAMM W/CAD, UNILAT IMPRESSION: Residual faint nodular density seen in the upper central aspect of the right breast as described. Correlation with ultrasound is recommended. ASSESSMENT CATEGORY: BIRADS Category 0: Incomplete. Need additional imaging evaluation. A letter regarding these results will be sent to the patient by the facility within 30 days. Approximately 10% of breast cancers are not detected by mammography. A normal mammogram should not delay biopsy of a clinically suspicious abnormality. Electronically Signed: Raj Prince MD at 15:02 EST ,
--- NOTE | 2024-09-22 14:19 | US_ITS ---
STUDY: ULTRASOUND BREAST - RIGHT REASON FOR EXAM: Female, 53 years old. Abnormal screening mammogram. TECHNIQUE: Axial and longitudinal images of the RIGHT breast were performed with a high resolution ultrasound transducer. # OF IMAGES: 18 COMPARISON: Comparison is made with prior mammogram dated September 02, 2024 and September 22, 2024. FINDINGS: RIGHT Breast: There is a 7 mm x 6 mm x 5 mm slightly lobulated hypoechoic nodular density at the 11:00 position of the breast 5 cm from the nipple. Biopsy recommended. US/Breast Limited Unilateral IMPRESSION: The mammographic abnormality corresponds to a 7 mm x 6 mm x 5 mm slightly lobulated hypoechoic nodular density at the 11:00 position of the breast at 5 cm from the nipple. Biopsy recommended. ASSESSMENT CATEGORY: BIRADS Category 4: Suspicious - Biopsy Should Be Considered. A letter regarding these results will be sent to the patient by the facility within 30 days. Electronically Signed: Raj Prince MD at 11:00 EST ,
== END | disposition home or self-care (01) ==
LOC: OPBI 14:18
PROVIDERS: Referring Provider Nurse Practitioner Family; Visit Provider Nurse Practitioner Family
DX: N63.12 Unspecified lump in the right breast, upper inner quadrant (principal)
CPT/HCPCS: 76642; 77065

== ENCOUNTER → 2024-09-29 | Outpatient (CLI) | payer OTHER, SELFPAY ==
--- NOTE | 2024-09-26 14:30 | BREAST_PTH ---
PATIENT: ROSEMARIE JI LOC: [facility] U#:[id number] AGE/SX: 53/F ROOM: RE09/29/[address]: Dr. Neto Lieberman MD : 1970 BED: DIS: 09/29/2024 SPEC #: [id number] RECD: 09/29/24 08:16 STATUS: LARON MARGARET #: [id number] JANES: 09/26/24 14:[address]: Neto Lieberman DEPT: SURGICAL PATHOLOGY RECD BY: Jonas Tang ENTERED: 09/29/24 08:16 SP TYPE: BREAST OTHR DR: NITA Chau Tissues: Right breast, NOS Procedures: Surgery Specimen Level IV HEADER OPERATION: Ultrasound guided needle core biopsy of right breast PRE-OP DIAGNOSIS: Abnormal mammogram TISSUE SUBMITTED: Right breast biopsy Ischemic Time: 1 minute Fixation Time: 77 hours MICROSCOPIC DIAGNOSIS Right breast, ultrasound guided core biopsy: Fibroadenoma. AM.mr 09/30/2024 MICROSCOPIC DESCRIPTION Slides are reviewed. GROSS DESCRIPTION Received in fixative is one container labeled with the patient's name and designated Right breast. The specimen consists of two cores of light arreguin-yellow soft tissue measuring in aggregate 1.5 x 0.5 x 0.1cm. The specimen is totally submitted in one cassette. AM. 09/29/2024 TC:5 CPT:78741
== END | disposition home or self-care (01) ==
PROVIDERS: Referring Provider Surgery; Visit Provider Surgery
DX: R92.8 Other abnormal and inconclusive findings on diagnostic imaging of breast (principal)
CPT/HCPCS: 88305

== ENCOUNTER → 2025-03-23 | Outpatient (CLI) | payer SELFPAY, OTHER ==
--- NOTE | 2025-03-23 07:57 | US_ITS ---
PROCEDURE: BREAST LIMITED UNILATERAL 03/23/2025 REASON FOR EXAM: 6 MONTH F/U Right breast mass. Mass was biopsied. Biopsy was benign. Short-term follow-up exam. Evaluate. Document stability. TECHNIQUE: Targeted left breast ultrasound. COMPARISON: Left breast ultrasound dated 09/26/2024 and mammogram dated 09/22/2024 and 09/02/2024 FINDINGS: Left breast ultrasound was targeted to the upper-outer quadrant of the right breast. There is a stable, solid, heterogeneous, hypoechoic mass at the 11 o'clock, 5 cm from the nipple position measuring 7 x 6 x 4 mm. The margins are irregular. The mass is wider than it is tall and does not produce any posterior shadowing. The mass was biopsied and shown to represent a benign process. US/Breast Limited Unilateral IMPRESSION: Impression: There is a benign-appearing stable solid mass in the right breast. The patient should return in August 2025 for routine yearly screening mammography. Birads: BI-RADS 2: BENIGN. RECOMMEND ANNUAL MAMMOGRAPHIC SCREENING. Reading Location: [id number]
== END | disposition home or self-care (01) ==
PROVIDERS: Referring Provider Surgery; Visit Provider Surgery
DX: N63.11 Unspecified lump in the right breast, upper outer quadrant (principal)
CPT/HCPCS: 76642

== ENCOUNTER → 2025-06-08 | Outpatient (CLI) | payer OTHER, SELFPAY ==
[2025-06-11 11:08] LABS: HPV APTIMA, High Risk Negative (Negative)
== END | disposition home or self-care (01) ==
LOC: LABSPEC 13:31
PROVIDERS: Visit Provider Nurse Practitioner Family
DX: Z12.4 Encounter for screening for malignant neoplasm of cervix (principal)
CPT/HCPCS: 87624; 88175; G0145

== ENCOUNTER → 2025-09-23 | Outpatient (CLI) | payer SELFPAY, OTHER ==
--- NOTE | 2025-09-23 10:15 | BI_ITS ---
EXAM: SCRN MAMM (CAD)W/SHAHBAZ BILAT DATE: 09/23/2025 CLINICAL HISTORY: F, Age 54 y/o , SCREENING BREAST CANCER Grandmother with breast cancer. Prior right ultrasound-guided breast biopsy. TECHNIQUE: Procedure Code: [id number] Modality: MG Procedure: SCRN MAMM (CAD)W/SHAHBAZ BILAT COMPARISON: Prior exam(s) dated September 02, 2024.. FINDINGS: TISSUE DENSITY: The breasts are heterogeneously dense, which may obscure small masses. Bilateral Breast Mammographic Findings: No significant masses, calcifications or other abnormalities are identified. A tissue clip marker is now seen in the upper anterior central portion of the right breast from prior ultrasound-guided breast biopsy. This is seen within the 6.5 mm well-defined nodule. No new mass lesion is seen. No suspicious masses, areas of developing architectural distortion, or suspicious calcifications. There has been no significant interval change. BI/SCRN MAMM (CAD)W/SHAHBAZ BILAT IMPRESSION: Status post ultrasound-guided biopsy of the right breast nodule as described. No acute abnormality is seen. OVERALL FINAL ASSESSMENT BI-RADS 2: BENIGN RECOMMENDATION: Routine annual follow-up in 1 Year Additional Recommendation none A letter with findings and recommendations will be mailed to the patient. Reading Location: [place] [id number]
== END | disposition home or self-care (01) ==
LOC: OPBI 10:13
PROVIDERS: Referring Provider Nurse Practitioner Family; Visit Provider Nurse Practitioner Family
DX: Z12.31 Encounter for screening mammogram for malignant neoplasm of breast (principal)
CPT/HCPCS: 77063; 77067